=== PATIENT | female | born 1945 | race Hispanic/Latino ===

== ENCOUNTER 2019-03-04 11:31 | Emergency (ER) | payer MEDICARE ==
[2019-03-04 19:57] VITALS: BP 107/57
== END 2019-03-04 19:30 | disposition home or self-care (01) ==
LOC: ED 11:31
DX: F03.90 Unspecified dementia, unspecified severity, without behavioral disturbance, psychotic disturbance, mood disturbance, and anxiety (principal); K21.9 Gastro-esophageal reflux disease without esophagitis
CPT/HCPCS: 36415; 70450; 80053; 80307; 80320; 81001; 82962; 85025; 93005; 93010; G0480